=== PATIENT | female | born 1960 | race African-American/Black ===

== ENCOUNTER 2019-03-17 08:49 | Day surgery (SDC) ==
--- NOTE | 2019-03-08 11:49 | EKG Report ---
Test Performed on : 03/08/2019 10:30:36 AM Test Reason : pat Blood Pressure : / mmHG Vent. Rate : 054 BPM Atrial Rate : 054 BPM P-R Int : 192 ms QRS Dur : 114 ms QT Int : 416 ms P-R-T Axes : 039 -04 -11 degrees QTc Int : 394 ms Sinus bradycardia. Nonspecific ST abnormality Abnormal ECG No previous ECGs available Confirmed by Felipe Jordan MD ([id number]) on 03/09/2019 11:06:02 PM
[2019-03-17] MEDS ORDERED: PEPCID ONE (10:27)
[2019-03-17] MEDS ORDERED: LR 1,000 ML ONE (10:27)
[2019-03-17] MEDS ORDERED: KEFZOL 1 GM/D5W 2 GM/100 ML IVPB ONE (10:27)
[2019-03-17] MEDS ORDERED: REGLAN ONE (10:27)
[2019-03-17] MEDS ORDERED: COREG PO ONE (10:29)
--- NOTE | 2019-03-17 10:43 | Diag Imaging Result Doc PS360 ---
LYMPHOSCINTIGRAPHY W/IMG - 03/17/2019 INDICATION: Malignant neoplasm of unspecified site of left female breast COMPARISON: None FINDINGS: 570 uCi of radiotracer was injected into the left breast. After the appropriate delay, there was successful visualization of at least one sentinel lymph node in the axilla. IMPRESSION: Successful lymphoscintigraphy of the breast. Electronically signed by King Wiggins 03/17/2019 10:41 AM
[2019-03-17] MEDS ORDERED: DUONEB (A & A) ONE (11:37)
[2019-03-17] MEDS ORDERED: XYLOCAINE-MPF 2% ONE ×2 (12:43→13:52)
[2019-03-17] MEDS ORDERED: DIPRIVAN 1% ONE (12:43)
[2019-03-17] MEDS ORDERED: ROBINUL ONE (12:43)
[2019-03-17] MEDS ORDERED: METHYLENE BLUE 0.5% ONE (12:47)
[2019-03-17] MEDS ORDERED: SODIUM CHLORIDE 0.9% ONE (12:47)
[2019-03-17] MEDS ORDERED: ZOFRAN ONE (13:37)
[2019-03-17] MEDS ORDERED: FENTANYL ONE (13:40)
[2019-03-17] MEDS ORDERED: APRESOLINE ONE (13:52)
[2019-03-17] MEDS ORDERED: SODIUM CHLORIDE 0.9% 10 ML ONE (13:52)
[2019-03-17] MEDS: DILAUDID ONE ×4 (15:32→15:55)
[2019-03-17] MEDS ORDERED: DILAUDID ONE (16:11)
[2019-03-17] MEDS ORDERED: LR 500 ML ONE (16:12)
[2019-03-17] MEDS ORDERED: NORCO-10 ONE (16:15)
[2019-03-17] MEDS: PHENERGAN ONE ×3 (16:40→16:54)
[2019-03-17] MEDS ORDERED: ZOFRAN IV PRN (17:45)
[2019-03-17] MEDS ORDERED: NORCO-10 PO PRN (17:45)
[2019-03-17] MEDS ORDERED: MEVACOR PO SCH (18:00)
--- NOTE | 2019-03-17 20:00 | OPERATIVE NOTE ---
PROCEDURE DATE: 03/17/2019 PREOPERATIVE DIAGNOSIS: Left breast cancer. POSTOPERATIVE DIAGNOSIS: Left breast cancer. PROCEDURE: 1. Injection of methylene blue into the left breast. 2. Atlantic lymph node mapping. 3. Left mastectomy. 4. Atlantic lymph node biopsy. SURGEON: Lobo Shetty MD CLEAT BLANKER: None. ANESTHESIA: General endotracheal. FINDINGS: One of the lymph nodes was positive. The remaining lymph nodes were negative. COMPLICATIONS: None at time of dictation. ESTIMATED BLOOD LOSS: 100 mL. SPECIMENS: Removed left breast, with single stitch medial, double stitch superior, and sentinel lymph nodes numbered 1 through 3. DRAINS: Size 10 flat drains x2. BRIEF HISTORY: A 59-year-old female with biopsy-proven breast cancer. She wanted to proceed with a mastectomy. The risks, benefits and alternatives were discussed. All questions answered. DESCRIPTION OF PROCEDURE: After informed consent was obtained, the patient was brought to the operative theater, transferred to the operative table and placed in supine position. General endotracheal anesthesia was then performed without complication. A formal time-out was then performed, confirming patient and procedure. All were in agreement. At that time attention was turned to the left breast. It should be noted that she had injection of methylene blue into the left breast prior to the procedure. It showed uptake into the breast. We then prepped and draped the left breast in a sterile fashion, after injecting methylene blue into the breast and massaging for 5 minutes. We then made a standard mastectomy incision, being an elliptical incision over the breast, carried all the way down to remove the breast in its entirety. We went superiorly to the 2nd intercostal space, medially to the sternum, inferiorly to inframammary fold and laterally to the axillary contents. We removed it off the pectoralis muscle, maintaining hemostasis with electrocautery and suture ligation. Once we did this, we used the gamma probe to probe into the axilla. We found one large lymph node which ended up being positive, but there was a smaller lymph node with it and 2 other areas with lymph nodes that were very small and grossly nonpathologic. We sent out for pathology. Again, the first one which was slightly enlarged was positive, but there was no extracapsular invasion and the remaining lymph nodes were negative. I had a discussion with Dr. Brody on the phone. We elected to not proceed with axillary node dissection. She was going to get adjuvant therapy regardless, and likely radiation to her axilla potentially. We elected to place 2 drains. We placed one over the pectoralis muscle and one in the axilla, and secured them in place. We then closed the skin in layers using 3-0 Vicryl and 4-0 Monocryl. The patient tolerated the procedure well. She was transferred to the recovery room. The family was updated. cc: Lobo Shetty MD
[2019-03-17] MEDS: CATAPRES PO SCH (23:14)
[2019-03-17] MEDS: COREG PO SCH (23:14)
[2019-03-17] MEDS: PERIDEX MT SCH (23:14)
--- NOTE | 2019-03-18 06:29 | GENERAL SURGERY PROGRESS NOTE ---
DATE: 03/18/2019 SUBJECTIVE: The patient is doing well. OBJECTIVE: Vital Signs: Patient is currently afebrile. Her vital signs are stable. General: No acute distress. Cardiovascular: Regular rate and rhythm. Lungs: Grossly clear. Chest wall okay. DEMETRI drains with serosanguineous output. ASSESSMENT AND PLAN: A 59-year-old female currently postoperative day #1 from left mastectomy with sentinel lymph node biopsy. Postoperative state at this time. We will plan on discharge home today after breakfast. cc: Lobo Shetty MD
[2019-03-18 08:11] VITALS: BP 155/57
[2019-03-18] MEDS: CATAPRES PO SCH (08:34)
[2019-03-18] MEDS: COREG PO SCH (08:35)
[2019-03-18] MEDS: PERIDEX MT SCH (08:37)
[2019-03-18] MEDS ORDERED: MOBIC PO SCH (09:00)
[2019-03-18] MEDS ORDERED: LOTREL 5/10 MG PO SCH (09:00)
[2019-03-18] MEDS ORDERED: HYDROCHLOROTHIAZIDE PO SCH (09:00)
[2019-03-18] MEDS ORDERED: COZAAR PO SCH (09:00)
[2019-03-21] MEDS ORDERED: VITAMIN D PO SCH (09:00)
== END 2019-03-18 09:17 | disposition home or self-care (01) ==
LOC: 4N 08:49 → OPS 08:49 → PAT 08:49 → OPS 03-18 09:17
PROVIDERS: ATTEND Surgery

== ENCOUNTER 2019-07-28 10:20 | Inpatient (IN) ==
[2019-07-28 12:00] LABS: BASO# 0.02 X1000 (0.0-0.2); BASO% 0.4 % (0.0-0.8); EOS# 0.07 X1000 (0.0-0.7); EOS% 1.6 % (0.0-10.0); HEMATOCRIT 22.4 % (37.0-47.0); HEMOGLOBIN 7.2 g/dL (12.0-16.0); IMM GRAN# 0.15 X1000 (0.0-0.04); IMM GRAN% 3.3 % (0.0-0.5); LYMPH# 1.67 X1000 (1.2-3.4); LYMPH% 37.1 % (20.5-51.1); MCH 28.6 PG (27-31); MCHC 32.1 g/dL (33-37); MCV 88.9 FL (81-99); MONO# 1.07 X1000 (0.11-0.59); MONO% 23.8 % (1.7-9.3); MPV 11.9 FL (7.4-10.4); NEUT# 1.52 X1000 (1.4-6.5); NEUT% 33.8 % (42.2-75.2); PLT 142 X1000 (130-400); RBC 2.52 XMIL (4.2-5.4); RDW 19.7 % (11.5-14.5)
[2019-07-28] MEDS ORDERED: LASIX IV ONE (12:25)
[2019-07-28 12:26] LABS: ANISOCYTOSIS 1+; BANDS 12 % (0-1); LYMPHS 48 % (21-51); MONO 4 % (1-9); NRBC 1 % (0-0); SEGS 28 % (42-75)
[2019-07-28 12:27] LABS: HYPOCHROM 1+; POIKILOCYTOSIS 1+
[2019-07-28 12:45] LABS: AGAP 12; ALB/GLOB RATIO 1.2; ALKALINE PHOSPHATASE 61 U/L (32-104); BUN 10 mg/dL (8-22); CALCIUM 9.2 mg/dL (8.8-10.2); CHLORIDE 101 mmol/L (98-107); COSMO 276; CREATININE 1.1 mg/dL (0.5-0.9); ESTIMATED GFR > 60; GLUCOSE 94 mg/dL (70-104); GOT 18 U/L (10-30); GPT 6 U/L (10-36); POTASSIUM 3.2 mmol/L (3.5-5.1); SODIUM 139 mmol/L (136-145); TCO2 26 mmol/L (25-35); TOTAL BILIRUBIN 0.37 mg/dL (0.20-1.00); TOTAL PROTEIN 5.5 g/dL (6.3-8.3)
--- NOTE | 2019-07-28 12:58 | Diag Imaging Result Doc PS360 ---
EXAM: CHEST-1 VIEW 07/28/2019 HISTORY: SOB TECHNIQUE: AP portable upright chest COMMENT: The study is somewhat underexposed. The heart size is at the upper limits of normal. There is no evidence of acute pulmonary disease. Considering differences in technique, compared to 05/17/2019 there has been no significant change. IMPRESSION: No acute disease. Electronically signed by Piyush Huang 07/28/2019 12:55 PM
[2019-07-28 13:05] LABS: INR 1.19; PROTIME 15.3 Seconds (11.0-16.0)
[2019-07-28 13:06] LABS: PTT 31.5 Seconds (22.3-41.8)
--- NOTE | 2019-07-28 14:17 | PROVIDER DOCUMENTATION ---
This chart was entered by Esther Carrera Scribe, acting as scribe for Terence Sunshine MD. HPI-General Adult - General Chief Complaint: Extremity Pain Stated Complaint: EDEMA/FOOT,FINGER PAIN,CANCER PATIENT Time Seen by Provider: 07/28/19 12:21 Source: patient Allergies/Adverse Reactions: Patient Allergies Allergy/AdvReac Type Severity Reaction Status Date / Time No Known Allergies Allergy Verified 07/28/19 12:12 Home Medications: Home Medication List Medication Instructions Recorded Confirmed Last Taken Type Carvedilol 25 mg PO BID 03/08/19 07/28/19 07/27/19 History Ergocalciferol (Vitamin D2) 50,000 unit PO Q7D 03/08/19 07/28/19 07/26/19 History [Vitamin D2] Hydrochlorothiazide 25 mg PO DAILY 03/08/19 07/28/19 07/27/19 History LOVAstatin [Mevacor] 20 mg PO QHS 03/08/19 07/28/19 07/27/19 History Apixaban [Eliquis] 5 mg PO BID 07/28/19 07/28/19 07/27/19 History Metoclopramide HCl 10 mg PO Q6HR PRN 07/28/19 07/28/19 07/27/19 History Multivitamin with Minerals 1 ea PO DAILY 07/28/19 07/28/19 07/27/19 History [Multiple Vitamin] Potassium Chloride E.r. [Klor-Con] 40 meq PO DAILY 07/28/19 07/28/19 07/27/19 History Vitamin B Complex [B Complex] 1 ea PO DAILY 07/28/19 07/28/19 07/27/19 History Zinc Sulfate 220 mg PO BID 07/28/19 07/28/19 07/27/19 History - History of Present Illness -Gen Adult Nature of Presenting Problems: 59yof presents to ED cc increased swelling to bilateral legs/feet, trouble walking and SOB since Friday. Pt reports she is a Chemo pt of Dr. Brody, he is aware of swelling and just told her to keep him informed. Pt is on no Lasix at present. Pt denies CP. Location of Pain/Injury: reports: chest, lower extremity (bilateral), feet (bilateral) Quality of Pain: reports: tightness Severity: reports: moderate Onset/Duration: reports: 6 days ago Timing: reports: still present Context/Activities at Onset: reports: light activity Modifying Factors: worse with: movement Associated Symptoms: reports: shortness of breath, trouble walking Similar Symptoms Previously?: Yes Recently seen or treated by another doctor?: Yes (Dr. Brody recently) Review of Systems - Adult - REVIEW OF SYSTEMS - ADULT Constitutional: reports: see HPI. denies: chills, fever, fatique Eyes: reports: no symptoms reported Ears, Nose, Mouth & Throat: reports: no symptoms reported Cardiovascular: reports: see HPI. denies: chest pain, palpitations Respiratory: reports: see HPI, shortness of breath. denies: cough, wheezing Gastrointestinal: reports: no symptoms reported Genitourinary: reports: no symptoms reported Musculoskeletal: reports: no symptoms reported Integumentary: reports: see HPI, other (swelling to bilateral legs and feet) Neurological: reports: no symptoms reported Psychiatric: reports: no symptoms reported Endocrine: reports: no symptoms reported Hematologic/Lymphatic: reports: no symptoms reported Allergic/Immunologic: reports: no symptoms reported All Other Systems: Reviewed and Negative Past History - Adult - PAST MEDICAL HISTORY-ADULT Review of Records: reports: Old Records Reviewed, Nursing Assessment Review, Medications Reviewed, Social history reviewed & non-contributory. Major Childhood Illnesses: reports: denies history Cardiovascular: reports: HTN Respiratory: reports: denies history Gastrointestinal: reports: denies history Obstetrical/Gynecological: reports: denies history Genitourinary: reports: denies history Musculoskeletal: reports: denies history Neurological: reports: denies history Endocrine/Immune: reports: denies history Other Conditions: reports: other cancer (left breast) - PRIOR SURGERIES/PROCEDURES Surgical/Procedure History: reports: breast (mastectomy 03/17/19) - IMMUNIZATION STATUS Childhood Immunizations: See Nurse Assessment Flu Vaccine: See Nurse Assessment - FAMILY HISTORY Family History: reviewed, not pertinent Physical Exam-General - PHYSICAL EXAM-ADULT Initial Vital Signs Reviewed: Yes - CONSTITUTIONAL General Appearance: appears well, alert, no apparent distress, obese. negative: anxious, combative - EYES Eyes: PERRL/EOMI, pink conjunctivae. negative: photophobia - HEAD, EARS, NOSE, MOUTH & THROAT HENMT: normocephalic/atraumatic, moist mucous membranes. negative: angioedema - NECK Neck: supple, normal inspection - RESPIRATORY Respiratory: chest non-tender, decreased breath sounds (at bases). negative: normal breath sounds, rhonchi, wheezing - CARDIOVASCULAR Cardiovascular: normal peripheral pulses, regular rate, rhythm, no murmur. negative: bradycardia, tachycardia - GASTROINTESTINAL (ABDOMEN) Abdominal Exam: normal bowel sounds, non tender, soft. negative: guarding, rebound - MUSCULOSKELETAL Extremity: pelvis stable, pedal edema (3+, bilateral), swelling (3+ bilateral legs) - SKIN Integumentary: normal color. negative: diaphoresis, jaundice - NEUROLOGIC Neurologic: care nurse rn II-XII nml as tested, grossly normal, no motor/sensory deficits - PSYCHIATRIC Psych/Mental Status: normal mood/affect, oriented x 3. negative: anxious, disheveled Progress - PLAN OF CARE/RESULTS Progress/Plan/Lab Results: Vital Signs - 8 hr 07/28/19 10:45 Temperature 98.3 F Pulse Rate 102 H Respiratory Rate 18 Blood Pressure 127/92 O2 Sat by Pulse Oximetry 96 Laboratory Results - last 24 hr 07/28/19 11:25 WBC 4.50 L RBC 2.52 L Hgb 7.2 L Hct 22.4 L MCV 88.9 MCH 28.6 MCHC 32.1 L RDW Std Deviation 19.7 H Plt Count 142 MPV 11.9 H Immature Gran % (Auto) 3.3 H Neut % (Auto) 33.8 L Lymph % (Auto) 37.1 [place] % (Auto) 23.8 H Eos % (Auto) 1.6 Baso % (Auto) 0.4 Immature Gran # (Auto) 0.15 H Neut # (Auto) 1.52 Lymph # (Auto) 1.67 [place] # (Auto) 1.07 H Eos # (Auto) 0.07 Baso # (Auto) 0.02 Segmented Neutrophils 28 L Band Neutrophils 12 H Lymphocytes 48 Monocytes 4 Myelocytes 4.0 Nucleated RBCs 1 H Atypical Lymphocytes 4.0 Hypochromia 1+ Poikilocytosis 1+ Anisocytosis 1+ Orders Category Date Time Status Cardiac Monitoring DIRECTED Care 07/28/19 12:25 Active Oxygen Therapy- ED Nursing DIRECTED Care 07/28/19 12:25 Active Saline Loc NOW Care 07/28/19 12:25 Active CHEST-1 VIEW [RAD] Stat Exams 07/28/19 12:25 Ordered CBC WITH DIFF [HEME] Stat Lab 07/28/19 11:25 Completed CK PROFILE [SP CHEM] Stat Lab 07/28/19 12:25 Uncollected CMP [COMPREHENSIVE METABOLIC PANEL] [CHEM] Stat Lab 07/28/19 11:25 Received PRO B-NATRIURETIC PEPTIDE Stat Lab 07/28/19 12:25 Uncollected PROTIME WITH INR [COAG] Stat Lab 07/28/19 12:25 Uncollected PTT [COAG] Stat Lab 07/28/19 12:25 Uncollected TROPONIN T HIGH SENSITIVITY Stat Lab 07/28/19 12:25 Uncollected UA NIMS W/REFLEX CULT [URINALYSIS] Stat Lab 07/28/19 12:26 Uncollected Furosemide [Lasix] Med 07/28/19 12:25 Discontinued 60 mg IV NOW ONE CP/SOB/Palp >45 yrs of Age Stat Oth 07/28/19 12:24 Ordered EKG [EKG] Stat Ther 07/28/19 12:25 Ordered Result Diagrams: 07/28/19 11:25 07/28/19 11:25 - XRAY 1 XRAY: Bilateral XRAY Study: Chest Impression: See EMR Report (IMPRESSION: No acute disease. Electronically signed by Piyush Huang 07/28/2019 12:55 PM) - CONSULTS/PCP/HOSPITALIST Notification #1 *Consult/PCP/Hospitalist*: /HERIBERTO Time Discussed: 14:03 Consult Disposition: Admit Departure - Departure Date of Disposition Decision: 07/28/19 Time of Disposition Decision: 14:03 DIAGNOSIS: CHF (congestive heart failure) Qualifiers: Heart failure type: unspecified Heart failure chronicity: unspecified Qualified Code(s): I50.9 - Heart failure, unspecified Disposition: ADMITTED INPATIENT 09 Certified Medical Emergency: Emergent Condition: Stable Referrals and Follow-Ups: Stephanie Darling CRNP [Primary Care Provider] - - Critical Care Note This patient required my direct & personal management of CC.: No Attestation - Physician/ CASA Attestation Patient care was provided by Advanced Practice Provider:: No The physician spent face to face time with patient:: Yes Advanced Practice Provider documentation review:: Supervising physician onsite and consulted in the evaluation and care of this patient. The physician did have a face to face encounter with the patient. This chart was documented by the indicated scribe, (Esther Carrera, Russ) and accurately reflects the services I performed and decisions made by me, Terence Sunshine MD, as attested by the provider's signature.
[2019-07-28] MEDS ORDERED: ZOFRAN PO PRN (15:27)
[2019-07-28] MEDS ORDERED: TYLENOL PO PRN (15:27)
[2019-07-28] MEDS ORDERED: ZOFRAN IV PRN (15:32)
[2019-07-28] MEDS ORDERED: REGLAN PO PRN (15:34)
--- NOTE | 2019-07-28 17:01 | EKG Report ---
Test Performed on : 07/28/2019 4:50:48 PM Test Reason : elevated HR Blood Pressure : / mmHG Vent. Rate : 115 BPM Atrial Rate : 119 BPM P-R Int : 000 ms QRS Dur : 104 ms QT Int : 344 ms P-R-T Axes : 000 008 254 degrees QTc Int : 475 ms Atrial fibrillation. with rapid ventricular response. Nonspecific ST and T wave abnormality Abnormal ECG When compared with ECG of 17-MAY-2019 17:57, (Unconfirmed) Criteria for Septal infarct are no longer present Confirmed by Prieto Hernandes MD ([id number]) on 07/28/2019 7:52:56 PM
[2019-07-28] MEDS ORDERED: KLOR-CON PO ONE (17:05)
[2019-07-28] MEDS ORDERED: POTASSIUM CHLORIDE 20 MEQ/SWI 20 MEQ/100 ML IVPB IV ONE (17:05)
[2019-07-28] MEDS: CARDIZEM 100 MG/NS 100 MG/100 ML IVPB IV SCH (17:36)
[2019-07-28] MEDS ORDERED: MAGNESIUM SULFATE 2 GM/S.W.I. 2 GM/50 ML IVPB IV ONE (18:55)
--- NOTE | 2019-07-28 18:56 | HISTORY AND PHYSICAL ---
PRIMARY CARE PROVIDER: TOOTIE Antonio. ONCOLOGIST: Dr. Brody. CHIEF COMPLAINT: Bilateral lower extremity edema. HISTORY OF PRESENT ILLNESS: Ms. Hook is a 59-year-old female who carries a past medical history of left-sided breast cancer. She is currently undergoing chemotherapy with Dr. Brody. She reports over the last few months she has had a waxing and waning in her bilateral lower extremity edema associated with some shortness of breath. No chest pain. No heart palpitations. No fever. No chills. Decrease in appetite. She does report nausea, vomiting, and diarrhea associated with her chemotherapy. She reports she has had many medication adjustments since starting her chemo. Could not really tell me what exactly she was on. She is on medications for her hypertension, as well as some type of fluid pill that she reports is "not very strong." Workup in the ED showed an elevated proBNP. She does have some bilateral lower extremity pitting edema as well as some anemia. Blood pressures are stable. Upon physical exam, heart tones were irregular. We did a stat EKG. She is currently in atrial fibrillation with RVR. She was given a dose of IV Lasix in the ED. Her potassium was 3.1. So we will go ahead and replenish her potassium, check a stat magnesium, and initiate her on a Cardizem drip, and continue her on PCV with a Cardiology consult and an echocardiogram in the a.m. PAST MEDICAL HISTORY: 1. Left-sided breast cancer, currently undergoing chemotherapy with Dr. Brody. 2. Hypertension. 3. Bilateral lower extremity edema. Reports no official diagnosis of congestive heart failure. However, she has been on medications in the past that lead me to think maybe she did have some congestive heart failure. PAST SURGICAL HISTORY: Left breast biopsy, port placement, x2. SOCIAL HISTORY: She continues to smoke about 4 cigarettes per day. No alcohol or illicit drug use. REVIEW OF SYSTEMS: Twelve-point review of systems completely negative except for those mentioned in HPI. PHYSICAL EXAMINATION: VITAL SIGNS: Temperature is 98 degrees, heart rate 106, respirations 16, blood pressure 120/83, O2 is 100% on room air. GENERAL: Ms. Hook is a pleasant, morbidly obese, 59-year-old female who is sitting up in the bed, somewhat short of breath, in no acute distress. HEENT: Atraumatic, normocephalic. PERRL. NECK: Supple. Trachea midline. CARDIOVASCULAR: Irregularly irregular. Did not appreciate any murmurs, gallops, or rubs. RESPIRATORY: Lung sounds clear bilaterally. Decreased in the bases. GI: Obese, soft, nontender, nondistended. Positive bowel sounds 4 quadrants. EXTREMITIES: Lower extremities with 2 to 3+ pitting edema. Could not assess pedal pulses secondary to the swelling. NEUROLOGIC: No focal deficits noted. DIAGNOSTIC DATA: Chest x-ray showed no acute disease, underexposed. EKG atrial fibrillation with RVR to 115 beats per minute. LABORATORY DATA: White count 4, hemoglobin and hematocrit 7.2 and 22, platelet count is 142,000. Sodium 139, potassium 3.2, BUN 10, creatinine 1.1, blood glucose is 94. CK 75. Troponin of 20. ProBNP of 2,792. ASSESSMENT AND PLAN: 1. Probable congestive heart failure exacerbation, possibly diastolic. She had a normal EF earlier in June of 60%. We will continue with IV diuresis. 2. Atrial fibrillation with rapid ventricular response, new onset. We will consult Cardiology. We will get a limited echo in the a.m. Place her on a Cardizem drip. Continue on PCV. 3. Left-sided breast cancer. On chemotherapy with Dr. Brody. We will consult Dr. Brody as well. 4. Anemia. Hemodynamically stable. We will type and screen her, transfuse as needed. 5. Hypokalemia. We will replenish and check a potassium. 6. Further recommendation to follow physician evaluation, laboratory and diagnostic data. Dictated by TOOTIE Osman for Suzanne Sawant MD cc: MD Armando Rizo MD Stephanie Weems, CRNP
[2019-07-28] MEDS ORDERED: COREG PO SCH (21:00)
[2019-07-28] MEDS: ELIQUIS PO SCH (21:17)
[2019-07-28] MEDS: MEVACOR PO SCH (21:17)
[2019-07-28] MEDS: LASIX IV SCH (21:17)
[2019-07-28 22:41] LABS: URINE SOURCE CLEAN CATCH
[2019-07-28 22:48] LABS: BILIRUBIN URINE NEGATIVE (NEGATIVE); BLOOD URINE NEGATIVE (NEGATIVE); COLOR YELLOW; GLUCOSE URINE NEGATIVE (NEGATIVE); KETONE URINE NEGATIVE (NEGATIVE); LEUKOCYTES URINE NEGATIVE (NEGATIVE); NITRITE URINE NEGATIVE (NEGATIVE); PH URINE 6.5; PROTEIN URINE TRACE mg/dL (NEGATIVE); SP GRAVITY URINE 1.009; TURBIDITY URINE CLEAR (CLEAR); UROBILINOGEN URINE NORMAL (NORMAL)
[2019-07-28 22:50] LABS: UR EPITHELIAL CELLS <10 /HPF (<10); URINE BACTERIA NEGATIVE /HPF; URINE RBC <10 /HPF (<10)
[2019-07-29] MEDS: CARDIZEM 100 MG/NS 100 MG/100 ML IVPB IV SCH (03:25)
[2019-07-29 06:49] LABS: BASO# 0.04 X1000 (0.0-0.2); BASO% 0.6 % (0.0-0.8); EOS# 0.07 X1000 (0.0-0.7); HEMOGLOBIN 6.8 g/dL (12.0-16.0); IMM GRAN# 0.35 X1000 (0.0-0.04); IMM GRAN% 4.8 % (0.0-0.5); LYMPH# 2.15 X1000 (1.2-3.4); LYMPH% 29.7 % (20.5-51.1); MCH 28.9 PG (27-31); MCHC 32.4 g/dL (33-37); MCV 89.4 FL (81-99); MONO# 1.22 X1000 (0.11-0.59); MONO% 16.9 % (1.7-9.3); MPV 12.9 FL (7.4-10.4); NEUT# 3.41 X1000 (1.4-6.5); PLT 148 X1000 (130-400); RBC 2.35 XMIL (4.2-5.4); RDW 20.3 % (11.5-14.5); WBC 7.24 X1000 (4.8-10.8)
[2019-07-29 07:04] LABS: AGAP 12; BUN 9 mg/dL (8-22); CALCIUM 8.8 mg/dL (8.8-10.2); CHLORIDE 100 mmol/L (98-107); COSMO 275; CREATININE 1.1 mg/dL (0.5-0.9); ESTIMATED GFR > 60; GLUCOSE 105 mg/dL (70-104); POTASSIUM 3.1 mmol/L (3.5-5.1); SODIUM 138 mmol/L (136-145); TCO2 26 mmol/L (25-35)
[2019-07-29] MEDS ORDERED: MAGNESIUM SULFATE 2 GM/S.W.I. 2 GM/50 ML IVPB IV ONE (07:20)
[2019-07-29] MEDS ORDERED: KLOR-CON PO ONE (07:21)
--- NOTE | 2019-07-29 08:22 | EKG Report ---
Test Performed on : 07/29/2019 07:11:20 AM Test Reason : afib Blood Pressure : / mmHG Vent. Rate : 091 BPM Atrial Rate : 065 BPM P-R Int : 000 ms QRS Dur : 102 ms QT Int : 348 ms P-R-T Axes : 000 040 -85 degrees QTc Int : [address] & T wave abnormality, consider inferior ischemia Abnormal ECG When compared with ECG of 28-JUL-2019 16:50, No significant change was found Confirmed by Prieto Hernandes MD ([id number]) on 07/29/2019 8:18:10 PM
[2019-07-29] MEDS ORDERED: NS 500 ML IV ONE (09:22)
[2019-07-29] MEDS: LASIX IV SCH ×2 (09:38→22:07)
[2019-07-29] MEDS: THERA M PLUS PO SCH (09:38)
[2019-07-29] MEDS: ELIQUIS PO SCH ×2 (09:38→22:07)
[2019-07-29] MEDS: ASPIRIN PO SCH (09:38)
[2019-07-29] MEDS: COZAAR PO SCH (09:38)
--- NOTE | 2019-07-29 12:50 | HEMO/ONC CONSULTATION ---
DATE: 07/29/2019 REASON FOR CONSULTATION: She is a known patient of ours for the treatment of left breast cancer. HISTORY OF PRESENT ILLNESS: Ms. Hook is an , 59-year-old female, who comes to the ER today with a complaint of increasing bilateral lower extremity edema with associated shortness of breath that has been increasing over the past several days. She denies any chest pain, heart palpitations, fever, chills, or new pain. The patient's workup in the ER revealed elevated proBNP. She had significant bilateral lower extremity pitting edema. She was found to be anemic with a hemoglobin of 7.2, hematocrit 22.4. She was in atrial fibrillation with RVR. Her potassium was 3.1. The patient was placed on a Cardizem drip and admitted to [facility] for further evaluation. The patient is a known patient of ours in the clinic for the treatment of T2 N1, ER/RI positive, HER-2/juliette positive left breast cancer. The patient underwent left mastectomy with sentinel node dissection on 03/17/2019. The patient began treatment on 04/26/2019 with Herceptin, Perjeta, Taxotere, and carboplatin. Her infusions are every 3 weeks. Her last dose was 07/20/2019. Due to neutropenia, the patient was placed on Udenyca, a white cell booster. Her last dose was on 07/21/2019. PAST MEDICAL HISTORY: 1. Hypertension. 2. Left-sided breast cancer, currently undergoing chemotherapy. PAST SURGICAL HISTORY: Left breast mastectomy, port placement. SOCIAL HISTORY: The patient states she smokes about 4 cigarettes a day. She denies alcohol or illicit drug use. ALLERGIES: No known drug allergies. HOME MEDICATIONS: 1. Eliquis. 2. Carvedilol. 3. Vitamin D2. 4. Hydrochlorothiazide. 5. Lovastatin. 6. Metoclopramide. 7. Multivitamin. 8. Potassium chloride. 9. Vitamin B complex. 10. Zinc sulfate. REVIEW OF SYSTEMS: The patient states she is breathing much better this morning. She denies any flank pain. She continues to have lower extremity edema. All other review of systems are negative. PHYSICAL EXAMINATION: Vital Signs: Temperature 98.1 degrees, pulse rate 86, respiratory rate 16, blood pressure 125/85, O2 saturation 100% on room air. She is in 0/10 pain. General: This is a morbidly obese female with a BMI of 59.5, who appears in no acute distress. HEENT: Sclera anicteric. PERRLA. Oral mucosa is normal. Cardiovascular: Irregularly irregular rhythm. Respiratory: Lung sounds are clear to auscultation. Normal respiratory effort. Dyspnea with exertion. Gastrointestinal: Abdomen is significantly protuberant, soft, nontender. No masses noted. Positive bowel sounds. Skin: No petechiae, ecchymosis, or rashes noted on exposed skin. Extremities: Lower extremities have +2 pitting edema bilaterally. Neurologic: No focal motor deficits noted. She is alert and oriented x3. LABORATORY DATA: WBC 7.24, hemoglobin 6.8, hematocrit 21.0, platelet count 148,000. Sedimentation rate 78. Potassium 3.1, creatinine 1.1. Magnesium 1.4. CRP 20.07. ProBNP 2792. RADIOLOGY: Chest x-ray: No acute pathology noted. EKG confirms atrial fibrillation. ASSESSMENT AND PLAN: 1. Probable congestive heart failure exacerbation. The patient's last MUGA scan revealed a 60% ejection fraction. Continue management per Cardiology and medical management. 2. Atrial fibrillation with rapid ventricular response. The patient has been following regularly with Dr. Guerra. She has been placed on Eliquis. She states she has been compliant. Her rate has been in the 60s to 80s in the clinic. 3. Left-sided breast cancer. The patient is currently receiving therapy with Herceptin, Perjeta, Taxotere, and carboplatin. Her last dose was 07/20/2019. She also received Udenyca 6 mg on 07/21/2019. Her treatments are every 3 weeks. 4. Anemia. The patient's hemoglobin has dropped to 6.8 today. The patient will require a blood transfusion. Due to her atrial fibrillation, Dr. Brody requests that her volume be infused slowly, 1 blood transfusion today and 1 blood transfusion tomorrow. 5. Hypokalemia, replenish per medical management per protocol. 6. Hypomagnesemia, replenish per protocol. 7. Deep venous thrombosis prophylaxis. The patient should remain on her Eliquis. She should also be helped to get out of the bed 3 times a day. 8. Nutrition. The patient does not have much of an appetite due to chemotherapy. She will require protein shakes to help keep her protein levels up, and calories. Dictated by TOOTIE Hurtado for Armando Brody MD cc: Armando Brody MD [facility]
[2019-07-29] MEDS ORDERED: COREG PO ONE (12:55)
--- NOTE | 2019-07-29 13:00 | CARDIOLOGY CONSULTATION ---
DATE: 07/29/2019 CHIEF COMPLAINT ON PRESENTATION: Lower extremity edema. HISTORY OF PRESENT ILLNESS: Ms. Hook is a 59-year-old black female with a history of atrial fibrillation, as well as hypertension, hyperlipidemia, normally sees Dr. Guerra as an outpatient. Last visit June 14. Over the last week or two, she has reported waxing and waning of lower extremity edema that worsened significantly yesterday resulting in significant bilateral lower extremity edema resulting in her being unable to walk very well. She subsequently presented and was found to be in atrial fibrillation. She was started on diuretics. She reports essentially stable lower extremity edema. She denies any overt orthopnea. She does currently receive chemotherapy via Dr. Brody for a left-sided breast cancer. PAST MEDICAL HISTORY: 1. Significant for atrial fib, apparent recent diagnosis in late 2018. She has been on Eliquis at home which she reports compliance with. 2. Hypertension. 3. Hyperlipidemia. 4. Breast cancer with left-sided mastectomy and lymph node dissection in February 2019, currently receiving chemo. SOCIAL HISTORY: She is single. No tobacco, no alcohol or illicit drugs. FAMILY HISTORY: Significant for hypertension. REVIEW OF SYSTEMS: A 10 system review of systems is negative, except for those things mentioned in the HPI. PHYSICAL EXAMINATION: Vital Signs: She is afebrile, heart rate 86, her blood pressure is 125/85. Intake/output: Thus far, we have limited data, 750 mL out in urine output. Essentially matched intake/output. General: No acute distress. Obese. HEENT: Oropharynx is moist. Poor dentition. Eye examination shows pink conjunctivae, white sclerae. Neck: Examination shows no obvious thyromegaly or thyroid tenderness. Cardiovascular: Distant. She has irregularly irregular heart sounds. She has no murmurs. She has 1+ bilateral lower extremity edema with some evidence of lymphedema noted in both lower extremities, warm and well perfused. Chest: Has distant breath sounds. No increased work of breathing. Abdomen: Soft, nontender, nondistended. She has no obvious organomegaly. Skin exam: Warm and dry throughout without any rashes. Neurological: She is moving all extremities well. She has no lateralizing deficits. PERTINENT DATA: Notably she had a nuclear scan showing a moderate-size fixed defect in the inferior and inferolateral wall suggestive of possibly infarct or scar. Cannot rule out significant soft tissue attenuation. The EF on that study was 57%. She had an echocardiogram on June 30 showing a normal ejection fraction of 60%. Mild LVH. No wall motion abnormalities. Her EKG on the at 1650 hours shows rapid atrial fibrillation, rate of 115 beats per minute. Nonspecific ST-T changes. Subsequent EKG on the at 0711 hours shows atrial fibrillation rate of 91 beats per minute. Her lab data shows a white count is 7.2, hematocrit 21, platelet count of 148. She is currently receiving blood. Her sodium is 138, potassium 3.1. BUN 9, creatinine is 1.1. Her magnesium level is 1.4. ProBNP was 2792 with a high sensitivity troponin of 20. ASSESSMENT: Ms. Hook is a 59-year-old female, who presented with edema. PLAN: She appears to be in diastolic heart failure. We will increase her diuretics to Lasix 60 mg IV b.i.d. We will reinstitute some of her beta blockade and try to get her off the diltiazem infusion. She is getting a limited echo. cc: Saran Vázquez MD
--- NOTE | 2019-07-29 17:34 | ECHO REPORT ---
ORDER DATE: 07/29/2019 INDICATION: Atrial fibrillation, history of breast cancer. M-MODE MEASUREMENTS: Left ventricle end diastole: 5.6. Left ventricle end systole: 3.8. Posterior wall: 1.0. Interventricular septum: 1.1. Left atrium: 6.3. Aortic diameter: 3.4. SUMMARY OF 2-DIMENSIONAL IMAGIN. The study is difficult. Left ventricular function appears to be mildly decreased in the range of 50% to 55%. The ejection fraction may be well within normal range; however, due to the irregular cycles and the limited apical views, it is difficult to calculate an accurate ejection fraction. 2. The left atrium is markedly dilated, consistent with persistent atrial fibrillation. 3. The mitral valve shows a mild degree of regurgitation. 4. The aortic valve opens normally 5. The tricuspid valve shows a mild to moderate degree of regurgitation. Pulmonary pressure estimated at 39 mmHg. There is no pericardial effusion, no mass, and no thrombus. 6. The right-sided chambers are mildly to moderately enlarged. Clinical correlation recommended. cc: MD Suzanne Rudolph MD
--- NOTE | 2019-07-29 19:45 | PROGRESS NOTE ---
DATE: 07/29/2019 SUBJECTIVE: The patient is resting comfortably in bed. No acute events noted overnight. She states that she feels a little bit better today. OBJECTIVE: Vital Signs: Temperature 98.7 degrees, blood pressure 113/57, heart rate 85, respirations 16, O2 saturations 100% on room air. General: This is a morbidly obese female sitting in bed in no acute distress. Heart: S1, S2 normal. Regular rate and rhythm. Lungs: Equal air entry bilaterally. No wheezing. No rales. No rhonchi. Abdomen: Positive bowel sounds. Soft, nontender, nondistended. Extremities: 3+ edema bilaterally. Neurologic: The patient is alert and oriented x3. LABS: White blood cell count 7.2, hemoglobin 6.8, hematocrit 21, platelets 148,000. Sodium 138, potassium 3.1, chloride 100, CO2 26, BUN 9, creatinine 1.1 glucose 105, magnesium 1.4. ASSESSMENT AND PLAN: 1. Acute diastolic congestive heart failure exacerbation. The patient's cardiac medications have been adjusted by the ocean lifeguard. We will continue to follow closely. 2. Anemia. The patient will receive a blood transfusion today. We will monitor the hemoglobin and hematocrit closely. 3. Breast cancer, status post chemotherapy. The patient is being followed by Dr. Brody. 4. Atrial fibrillation. The patient's rate control medications have been adjusted. Continue on Eliquis. 5. Morbid obesity. Aware. 6. Deep vein thrombosis prophylaxis. The patient is currently on Eliquis. cc: Suzanne Sawant MD MTD[facility]umber[facility]
[2019-07-29] MEDS: COREG PO SCH (22:07)
[2019-07-29] MEDS: MEVACOR PO SCH (22:08)
[2019-07-30 06:26] LABS: BASO# 0.02 X1000 (0.0-0.2); BASO% 0.2 % (0.0-0.8); EOS# 0.04 X1000 (0.0-0.7); EOS% 0.5 % (0.0-10.0); HEMATOCRIT 24.5 % (37.0-47.0); HEMOGLOBIN 7.9 g/dL (12.0-16.0); IMM GRAN# 0.38 X1000 (0.0-0.04); IMM GRAN% 4.3 % (0.0-0.5); LYMPH# 1.74 X1000 (1.2-3.4); LYMPH% 19.7 % (20.5-51.1); MCH 28.6 PG (27-31); MCHC 32.2 g/dL (33-37); MCV 88.8 FL (81-99); MONO# 1.26 X1000 (0.11-0.59); MONO% 14.3 % (1.7-9.3); MPV 12.5 FL (7.4-10.4); NEUT# 5.38 X1000 (1.4-6.5); PLT 148 X1000 (130-400); RBC 2.76 XMIL (4.2-5.4); RDW 19.2 % (11.5-14.5); WBC 8.82 X1000 (4.8-10.8)
[2019-07-30 06:36] LABS: AGAP 11; BUN 9 mg/dL (8-22); CALCIUM 8.8 mg/dL (8.8-10.2); CHLORIDE 101 mmol/L (98-107); COSMO 276; CREATININE 1.1 mg/dL (0.5-0.9); ESTIMATED GFR > 60; GLUCOSE 97 mg/dL (70-104); MAGNESIUM 1.5 mg/dL (1.5-2.7); POTASSIUM 3.1 mmol/L (3.5-5.1); SODIUM 139 mmol/L (136-145); TCO2 27 mmol/L (25-35)
[2019-07-30] MEDS ORDERED: MAGNESIUM SULFATE 2 GM/S.W.I. 2 GM/50 ML IVPB IV ONE ×2 (08:18→17:24)
[2019-07-30] MEDS: ELIQUIS PO SCH ×2 (08:19→21:16)
[2019-07-30] MEDS: THERA M PLUS PO SCH (08:19)
[2019-07-30] MEDS: COZAAR PO SCH (08:19)
[2019-07-30] MEDS: ASPIRIN PO SCH (08:19)
[2019-07-30] MEDS: COREG PO SCH ×2 (08:19→21:16)
[2019-07-30] MEDS: LASIX IV SCH ×2 (08:19→21:16)
[2019-07-30] MEDS: POTASSIUM CHLORIDE 20% LIQUID PO SCH ×2 (09:23→18:30)
[2019-07-30] MEDS ORDERED: SYSTANE EYE DROPS BOTH EYES PRN (10:02)
--- NOTE | 2019-07-30 11:00 | Extremity Venous Study ---
PROCEDURE NAME: Venous U/S Bilateral Legs - 07/29/2019 BILATERAL LOWER EXTREMITY VENOUS STUDY: REQUESTING PHYSICIAN: Dr. Sawant. SEAM CLOSER: Scott. INDICATION: Swelling. EQUIPMENT: [employer] Vivid E9 ultrasound system with a 9 L-D transducer. FINDINGS: Images of the bilateral lower extremity venous systems were obtained in both sagittal and transverse planes. Doppler was used to evaluate veins for spontaneity, phasicity, respiratory excursion, and digital augmentation. RESULTS: Normal venous compression, normal venous flow. No obvious superficial or deep venous thrombosis noted. INTERPRETATION: Essentially normal bilateral lower extremity venous study. cc: MD Suzanne Box MD
--- NOTE | 2019-07-30 12:45 | HEMO/ONC PROGRESS NOTE ---
DATE: 07/30/2019 SUBJECTIVE: Ms. Hook is sitting up in bed after eating her breakfast and feeling very well. She states that she does feel better than she did yesterday. She is breathing better. She denies any pain. She states her edema in her lower extremities has not decreased. She has no significant complaint. No significant events occurred overnight. OBJECTIVE: Vital Signs: Temperature 97.6 degrees, pulse rate 95, respiratory rate 14, blood pressure 89/55, and O2 saturation 93% on room air. She is in 0/10 pain. PHYSICAL EXAMINATION: General: The patient is in no acute distress. Cardiovascular: Normal S1, S2. Heart rate and rhythm regular. The patient is hypotensive. Respiratory: Lung sounds are clear to auscultation. Normal respiratory effort. Extremities: Lower extremities continue to show +2 to 3 pitting edema. Neurological: Alert and oriented x3. No focal motor deficits. LABORATORY: WBCs 8.82, hemoglobin 7.9, hematocrit 24.5, platelet count 148,000, potassium 3.1, and creatinine 1.1. ProBNP 1697. ASSESSMENT AND PLAN: 1. Diastolic heart failure. Per Cardiology. 2. Atrial fibrillation with RVR. Continue management per Cardiology. 3. Anemia. The patient had 1 blood transfusion yesterday. She should be having her second blood transfusion today. Her hemoglobin is improving. 4. Left-sided breast cancer. The patient is currently receiving treatment for cancer. Her treatment is on hold while she is in the hospital. We will follow up with her in clinic.. 5. Hypokalemia. Replenish per medical management per protocol. 6. Deep venous thrombosis prophylaxis. The patient should remain on Eliquis. She should also be getting out of the bed up to 3 times a day. 7. Nutrition. Continue the patient on protein shakes. Continue to encourage her to eat. 8. Hypomagnesemia. This is resolved for today. Dictated by TOOTIE Hurtado for Armando Brody MD cc: Armando Brody MD [facility]
[2019-07-30 15:48] LABS: MAGNESIUM 1.6 mg/dL (1.5-2.7)
[2019-07-30] MEDS ORDERED: KLOR-CON PO ONE (17:24)
--- NOTE | 2019-07-30 18:25 | CARDIOLOGY PROGRESS NOTE ---
DATE: 07/30/2019 SUBJECTIVE: Ms. Hook has no complaints today. She reports her swelling has improved significantly. She still has some swelling and some lower extremity discomfort but overall it has improved. PHYSICAL: She is afebrile, heart rate is 95, blood pressure is 89/55. I's and O's are poorly recorded. General: No acute distress. Cardiovascular: She sounds to be in an irregularly irregular rhythm. She has no murmurs, she has no S3. She has mild bilateral lower extremity edema and warm well-perfused extremities. Her chest exam is distant clear. No increased work of breathing. Abdomen soft, nontender. PERTINENT DATA: White count 8.8, hematocrit 24.5, platelet count is 148,000. Sodium 139, potassium 3.1, her BUN is 9, creatinine is 1.1, mag level is 1.5. ProBNP is 1697. ASSESSMENT: Ms. Hook is a 59-year-old female with diastolic failure, chronic atrial fibrillation who presented anemic as well. PLAN: She has received repletion of her potassium and magnesium. She continues on anticoagulants for the time being. I have discontinued her losartan. For the time being we will continue her on the carvedilol for rate control. She is on diuretics. Labs have been ordered for the morning. Hematology is following the patient for evaluation of her anemia. cc: Saran Vázquez MD
[2019-07-30] MEDS: MEVACOR PO SCH (21:16)
[2019-07-31 07:20] LABS: AGAP 12; BUN 9 mg/dL (8-22); CALCIUM 8.3 mg/dL (8.8-10.2); CHLORIDE 99 mmol/L (98-107); COSMO 276; CREATININE 1.1 mg/dL (0.5-0.9); ESTIMATED GFR > 60; GLUCOSE 90 mg/dL (70-104); MAGNESIUM 1.6 mg/dL (1.5-2.7); PHOSPHORUS 3.4 mg/dL (2.7-4.5); POTASSIUM 2.9 mmol/L (3.5-5.1); SODIUM 139 mmol/L (136-145); TCO2 28 mmol/L (25-35)
[2019-07-31 07:31] LABS: HEMATOCRIT 23.8 % (37.0-47.0); HEMOGLOBIN 7.7 g/dL (12.0-16.0); MCH 28.6 PG (27-31); MCHC 32.4 g/dL (33-37); MCV 88.5 FL (81-99); MPV 12.9 FL (7.4-10.4); RBC 2.69 XMIL (4.2-5.4); RDW 19.5 % (11.5-14.5); WBC 9.56 X1000 (4.8-10.8)
[2019-07-31] MEDS ORDERED: KLOR-CON PO ONE ×2 (08:39→19:27)
[2019-07-31] MEDS ORDERED: MAGNESIUM SULFATE 2 GM/S.W.I. 2 GM/50 ML IVPB IV ONE (08:39)
[2019-07-31] MEDS ORDERED: POTASSIUM CHLORIDE 20% LIQUID PO ONE ×2 (09:15→22:30)
[2019-07-31] MEDS: COREG PO SCH ×2 (09:21→21:28)
[2019-07-31] MEDS: ELIQUIS PO SCH ×2 (09:21→21:28)
[2019-07-31] MEDS: THERA M PLUS PO SCH (09:22)
[2019-07-31] MEDS: LASIX IV SCH (09:22)
[2019-07-31] MEDS: ASPIRIN PO SCH (09:22)
[2019-07-31] MEDS ORDERED: ALBUMIN 25% IV ONE (09:30)
[2019-07-31] MEDS: FLONASE NAS SCH (10:39)
[2019-07-31] MEDS: MUCINEX PO SCH ×2 (10:40→21:28)
[2019-07-31] MEDS ORDERED: BLISTEX MEDICATED BERRY LIP BALM TOP PRN (10:53)
--- NOTE | 2019-07-31 11:10 | Diag Imaging Result Doc PS360 ---
EXAM: CT MAXILLOFACIAL(SINUS) W/O CO 07/31/2019 HISTORY: sinusitis TECHNIQUE: CT of the paranasal sinuses COMMENT: There are no previous studies. There is some mucosal thickening in both maxillary sinuses, particularly on the right side. There are no air-fluid levels. There is minimal mucosal thickening in the sphenoid sinuses and to a greater extent in multiple ethmoid air cells bilaterally. There is mucosal thickening in the left frontal sinus. There is some fluid in some of the mastoid air cells on the left. The middle ear cavities are pneumatized. Both infundibula appear to be widely patent. There is no evidence of acute bony abnormality. IMPRESSION: Chronic bilateral maxillary, ethmoid, and left frontal sinusitis. Left mastoid effusion. Electronically signed by Piyush Huang 07/31/2019 11:08 AM
--- NOTE | 2019-07-31 11:13 | Diag Imaging Result Doc PS360 ---
EXAM: CT THORAX W/O CONTRAST 07/31/2019 HISTORY: dyspnea TECHNIQUE: This exam was performed using automated exposure control, adjustment of mA or kV according to patient size, and/or use of iterative reconstruction technique. COMMENT: The current study is compared with 04/02/2019. There are calcified nodes in the left hilum. There is opacification of the medial portion of the left lower lobe which was not present at the time the previous study. There is platelike opacity in the superior segment of the left lower lobe. There are atherosclerotic calcifications in the aorta and coronary arteries. There is no evidence of acute bony abnormality. The visualized portion of the abdomen is grossly normal in appearance. IMPRESSION: Atelectasis and/or pneumonia left lower lobe. Electronically signed by Piyush Huang 07/31/2019 11:11 AM
--- NOTE | 2019-07-31 14:04 | PROGRESS NOTE ---
DATE: 07/31/2019 SUBJECTIVE: The patient complains of persistent coughing and postnasal drip. OBJECTIVE: Vital Signs: Temperature 98.1 degrees, blood pressure 96/46, heart rate 96, respirations 20, O2 saturations 100% on room air. Intake 1 L. General: This is a morbidly obese female sitting up in bed in no acute distress. Heart: S1, S2 normal. Lungs: Coarse breath sounds bilaterally. Abdomen: Positive bowel sounds. Soft, obese, nontender, nondistended. Extremities: 2+ edema bilaterally. Neuro: The patient is alert and oriented x3. LABS: White blood cell count 9.5, hemoglobin 7.7, hematocrit 23, platelets 164,000. Sodium 139, potassium 2.9, chloride 99, CO2 28, BUN 9, creatinine 1.1, glucose 90, magnesium 1.6, phosphorus 3.4, calcium 8.3, albumin 2.8. CT of the chest reveals atelectasis and/or left lower lobe pneumonia. CT of the sinuses reveals chronic bilateral maxillary ethmoid and left frontal sinusitis. Left mastoid effusion. ASSESSMENT AND PLAN: 1. Possible left lower lobe pneumonia. Will start the patient on antibiotics, bronchodilator therapy. Will check blood and sputum cultures. Will also add bronchodilator therapy. Will add incentive spirometry. 2. Acute diastolic congestive heart failure exacerbation. Slowly improving. Continue on the current regimen as directed by the industrial spraypainter. 3. Anemia. Stable. 4. Chronic sinusitis. Antibiotics have been started. We will also start the patient on Nasonex. 5. Breast cancer status post chemotherapy. Aware. The patient is being followed by Dr. Brody. 6. Hypokalemia. Will replace the patient's potassium. 7. Hypomagnesemia. Will replace the patient's magnesium. 8. Atrial fibrillation. The patient is rate controlled. Continue on the current regimen. 9. Morbid obesity. Aware. 10. Deep vein thrombosis prophylaxis. Continue on Eliquis. cc: Suzanne Sawant MD MTDD
[2019-07-31] MEDS ORDERED: NS NEB INH SCH (14:15)
--- NOTE | 2019-07-31 15:22 | HEMO/ONC PROGRESS NOTE ---
DATE: 07/31/2019 SUBJECTIVE: Ms Hook is sitting up visiting with family. She feels very good today. She states she has had improvement. She continues to have cough and upper respiratory like symptoms. She has no pain. She had a good night's sleep. OBJECTIVE: Vital Signs: Temperature 98.1 degrees, pulse rate 96, respiratory rate 20, blood pressure 96/46, O2 saturation 100% on room air. She is in 0/10 pain. PHYSICAL EXAMINATION: General: Pleasant female in no acute distress. Cardiovascular: Normal S1, S2. Heart rate and rhythm regular. Patient remains hypotensive. Respiratory: Coarse lung sounds noted bilaterally. Normal respiratory effort. Abdomen: Protuberant, soft, nontender, nondistended. Extremities: There is +2 pitting edema to bilateral lower extremities. Neurological: Patient is alert and oriented x3. No focal motor deficits noted. LABORATORY: WBCs 9.56, hemoglobin 7.7, hematocrit 23.8, platelet count 164,000. Potassium 2.9, creatinine 1.1, calcium 8.3, magnesium 1.6, albumin 2.8. ASSESSMENT AND PLAN: 1. Diastolic heart failure is per Cardiology. 2. Atrial fibrillation with rapid ventricular response. Continue management per Cardiology. 3. Anemia. The patient had one blood transfusion on 07/29/2019. We had ordered a 2nd blood transfusion to be given yesterday. It does not appear that occurred. I placed a transfusion order today for the 2nd transfusion to occur. The patient will need blood transfusions for hemoglobin of less than 8. 4. Left-sided breast cancer. The patient is currently receiving treatment for cancer. It is on hold while she is in the hospital. We will follow up with her in the clinic when she recovers from this acute illness. 5. Hypokalemia continue to replenish per medical management protocol. 6. Deep venous thrombosis prophylaxis. The patient is on Eliquis. She should also be getting up out of the bed at least 3 times a day. 7. Nutrition. Continue the patient on protein shakes daily. Encouraged her to eat. Dictated by TOOTIE Hurtado for Armando Brody MD cc: Armando Brody MD [facility]
[2019-07-31] MEDS: ZYVOX 600 MG/D5W 600 MG/300 ML IVPB IV SCH (15:30)
[2019-07-31] MEDS: MAXIPIME 1 GM in NS 50 ML IV SCH (15:30)
[2019-07-31] MEDS: XOPENEX NEB INH SCH ×2 (16:57→22:25)
[2019-07-31 17:15] LABS: MAGNESIUM 2.1 mg/dL (1.5-2.7); POTASSIUM 3.2 mmol/L (3.5-5.1)
[2019-07-31] MEDS ORDERED: NS 500 ML ONE (18:41)
[2019-07-31] MEDS: MEVACOR PO SCH (21:28)
[2019-08-01] MEDS: LASIX IV SCH ×3 (00:01→20:52)
[2019-08-01] MEDS: ZYVOX 600 MG/D5W 600 MG/300 ML IVPB IV SCH ×3 (00:02→23:58)
[2019-08-01] MEDS: MAXIPIME 1 GM in NS 50 ML IV SCH ×3 (00:02→23:54)
[2019-08-01] MEDS ORDERED: CALMOSEPTINE OINTMENT TOP PRN (03:21)
[2019-08-01 06:36] LABS: HEMATOCRIT 26.5 % (37.0-47.0); HEMOGLOBIN 8.5 g/dL (12.0-16.0); MCH 28.3 PG (27-31); MCHC 32.1 g/dL (33-37); MCV 88.3 FL (81-99); WBC 9.65 X1000 (4.8-10.8)
[2019-08-01 07:11] LABS: ALBUMIN 3.2 g/dL (3.5-5.0); CREATININE 1.2 mg/dL (0.5-0.9); PHOSPHORUS 3.1 mg/dL (2.7-4.5); POTASSIUM 3.6 mmol/L (3.5-5.1)
[2019-08-01] MEDS: THERA M PLUS PO SCH (08:14)
[2019-08-01] MEDS: ASPIRIN PO SCH (08:14)
[2019-08-01] MEDS: ELIQUIS PO SCH ×2 (08:14→20:58)
[2019-08-01] MEDS: COREG PO SCH ×3 (08:14→21:02)
[2019-08-01] MEDS: MUCINEX PO SCH ×2 (08:14→20:59)
[2019-08-01] MEDS: FLONASE NAS SCH (08:15)
[2019-08-01] MEDS: CULTURELLE PO SCH ×2 (10:06→20:59)
[2019-08-01] MEDS: XOPENEX NEB INH SCH ×3 (10:50→22:50)
[2019-08-01] MEDS ORDERED: MAGNESIUM SULFATE 2 GM/S.W.I. 2 GM/50 ML IVPB IV ONE (18:08)
--- NOTE | 2019-08-01 18:28 | PROGRESS NOTE ---
DATE: 08/01/2019 SUBJECTIVE: The patient is resting comfortably in bed. She states that she feels okay today. No acute events noted overnight. OBJECTIVE: Vital Signs: Temperature 97.7 degrees, blood pressure 121/58, heart rate 66, respirations 16, O2 saturations 100% on room air. General: This is a morbidly obese female sitting in bed in no acute distress. Heart: S1, S2 normal. Regular rate and rhythm. Lungs: Equal air entry bilaterally. No wheezing, no rales. Abdomen: Positive bowel sounds. Soft, nontender, nondistended. Extremities: 2+ edema to legs bilaterally. Neuro: The patient is alert and oriented x3. LAB: White blood cell count 9.6, hemoglobin 8.5, hematocrit 26, platelets 154,000. Sodium 139, potassium 3.6, chloride 99, CO2 26, BUN 11, creatinine 1.2, glucose 95. ASSESSMENT AND PLAN: 1. Left lower lobe pneumonia. Continue with antibiotics, bronchodilator therapy and incentive spirometry. 2. Acute diastolic congestive heart failure exacerbation. Continue with the current diuretic regimen as directed by the vp product. 3. Anemia. Improved. The patient received a blood transfusion yesterday. 4. Chronic sinusitis. Continue with antibiotics and Nasonex. 5. Morbid obesity. Aware. The patient has been counseled about weight loss and proper diet. 6. Breast cancer status post chemotherapy. Aware. The patient has been followed by Dr. Brody. 7. Acute kidney injury. This is likely secondary to the diuretic therapy. Continue to monitor closely. 8. Atrial fibrillation. The patient is rate controlled. Continue on the current cardiac medications. 9. Deep vein thrombosis prophylaxis. Continue on Eliquis. 10. Will consult physical therapy. Out of bed to chair. cc: Suzanne Sawant MD [facility]
[2019-08-01] MEDS: MEVACOR PO SCH (21:00)
[2019-08-02] MEDS: ZYVOX 600 MG/D5W 600 MG/300 ML IVPB IV SCH ×2 (00:09→12:07)
--- NOTE | 2019-08-02 04:14 | PROGRESS NOTE ---
DATE: 07/30/2019 SUBJECTIVE: The patient is resting comfortably in bed. She states that she feels better today. Her legs are still swollen. OBJECTIVE: Vital Signs: Temperature 98.2 degrees, blood pressure 108/47, heart rate 94, respirations 18, O2 saturations 100% on room air. General: This is a chronically ill-appearing female, lying in bed in no acute distress. Heart: S1, S2. Normal. Lungs: Clear to auscultation bilaterally. Abdomen: Positive bowel sounds. Soft, nontender, nondistended. Extremities: 3+ edema. Neurologic: The patient is alert and oriented x3. LABS: White blood cell count 8.8, hemoglobin 7.9, hematocrit 24, platelets 148,000. Sodium 139, potassium 3, chloride 101, CO2 27, BUN 9, creatinine 1.1, glucose 97, magnesium 1.6. ASSESSMENT AND PLAN: 1. Acute diastolic congestive heart failure exacerbation. Continue with the current regimen as directed by the airline stewardess. 2. Anemia. Improved. The patient received 1 unit of packed red blood cells yesterday. 3. Breast cancer, status post chemotherapy. Aware. The patient is followed by Dr. Brody. 4. Atrial fibrillation. Continue on the current cardiac regimen. 5. Morbid obesity. The patient has been counseled about weight loss and proper diet. 6. Deep vein thrombosis prophylaxis. Continue on Eliquis. cc: Suzanne Sawant MD
--- NOTE | 2019-08-02 07:31 | Diag Imaging Result Doc PS360 ---
EXAM: CHEST-1 VIEW INDICATION: pneumonia TECHNIQUE: One view COMPARISON: 07/28/2019 FINDINGS: The right chest port is in stable position. Inspiration is suboptimal. The lungs remain grossly clear by plain radiograph. No new consolidation is identified. Cardiac silhouette is stable. IMPRESSION: Essentially stable chest. Electronically signed by Gerber Lopez 08/02/2019 7:28 AM
[2019-08-02 07:38] LABS: ALBUMIN 3.2 g/dL (3.5-5.0); CREATININE 1.3 mg/dL (0.5-0.9); MAGNESIUM 1.6 mg/dL (1.5-2.7); PHOSPHORUS 3.7 mg/dL (2.7-4.5); POTASSIUM 3.3 mmol/L (3.5-5.1)
[2019-08-02 07:42] LABS: BASO# 0.06 X1000 (0.0-0.2); BASO% 0.6 % (0.0-0.8); EOS# 0.02 X1000 (0.0-0.7); EOS% 0.2 % (0.0-10.0); HEMATOCRIT 27.6 % (37.0-47.0); HEMOGLOBIN 8.9 g/dL (12.0-16.0); IMM GRAN# 0.14 X1000 (0.0-0.04); IMM GRAN% 1.5 % (0.0-0.5); LYMPH# 1.58 X1000 (1.2-3.4); MCH 28.6 PG (27-31); MCHC 32.2 g/dL (33-37); MCV 88.7 FL (81-99); MONO# 1.03 X1000 (0.11-0.59); MONO% 11.1 % (1.7-9.3); MPV 11.8 FL (7.4-10.4); NEUT# 6.47 X1000 (1.4-6.5); NEUT% 69.6 % (42.2-75.2); PLT 165 X1000 (130-400); RBC 3.11 XMIL (4.2-5.4)
[2019-08-02 07:54] LABS: ANISOCYTOSIS 1+; BANDS 2 % (0-1); HYPOCHROM 1+; LYMPHS 20 % (21-51); MONO 14 % (1-9); SEGS 62 % (42-75)
[2019-08-02] MEDS: CULTURELLE PO SCH ×2 (08:41→21:03)
[2019-08-02] MEDS: MUCINEX PO SCH ×2 (08:41→21:02)
[2019-08-02] MEDS: THERA M PLUS PO SCH (08:41)
[2019-08-02] MEDS: ASPIRIN PO SCH (08:41)
[2019-08-02] MEDS: LASIX IV SCH (08:41)
[2019-08-02] MEDS: ELIQUIS PO SCH ×2 (08:41→21:02)
[2019-08-02] MEDS: COREG PO SCH ×2 (08:41→21:02)
[2019-08-02] MEDS: FLONASE NAS SCH (08:43)
[2019-08-02] MEDS ORDERED: MAGNESIUM SULFATE 2 GM/S.W.I. 2 GM/50 ML IVPB IV ONE (08:52)
[2019-08-02] MEDS ORDERED: KLOR-CON PO ONE (08:54)
[2019-08-02] MEDS: XOPENEX NEB INH SCH ×3 (11:33→22:26)
[2019-08-02] MEDS: MAXIPIME 1 GM in NS 50 ML IV SCH (12:07)
--- NOTE | 2019-08-02 12:43 | CARDIOLOGY PROGRESS NOTE ---
DATE: 08/02/2019 SUBJECTIVE: Ms. Hook reports she is doing well. She has no pain complaints. Her edema has improved. PHYSICAL EXAMINATION: Afebrile, heart rate is 90, blood pressure 90/48. General: She is in no acute distress. Cardiovascular: She sounds to be in an irregularly irregular rhythm. She has no murmurs. She has trace bilateral lower extremity edema. Chest Examination: Sounds clear bilaterally. She has no increased work of breathing. Abdomen is soft, nontender. PERTINENT DATA: White count 9.3, hematocrit 27.6, platelet count is 165,000. Her sodium is 137, potassium is 3.3, BUN is 11, creatinine is 1.3. ASSESSMENT: Ms. Hook is a 59-year-old female who presented with anemia as well as atrial fibrillation and diastolic failure. PLAN: We will switch her over to oral Lasix. From my standpoint, she can be discharged when safe from a primary team standpoint. I will place her on 40 b.i.d. of Lasix. She seems reasonably rate-controlled on her current dose of carvedilol. cc: Saran Vázquez MD
--- NOTE | 2019-08-02 15:43 | PROGRESS NOTE ---
DATE: 08/02/2019 SUBJECTIVE: The patient is resting comfortably. She states that she feels much better. The swelling in her legs has improved. OBJECTIVE: Vital Signs: Temperature 98.2 degrees, blood pressure 90/48, heart rate 90, respirations 16, O2 saturation is 100% on room air. General: This is a morbidly obese female sitting in bed in no acute distress. Heart: S1, S2 normal. Lungs: Equal air entry bilaterally. No wheezing. No rales. Abdomen: Positive bowel sounds. Soft, obese, nontender, nondistended. Extremities: 2+ edema bilaterally. Neurologic: The patient is alert and oriented x3. LABS: White blood cell count 9.3, hemoglobin 8.9, hematocrit 27, platelets 165,000. Sodium 137, potassium 3.3, chloride 98, CO2 26, BUN 11, creatinine 1.3, glucose 114, albumin 3.2. IMAGING: Chest x-ray shows a stable chest. ASSESSMENT AND PLAN: 1. Acute diastolic congestive heart failure exacerbation. Improved. The patient has been transitioned to oral diuretic therapy by the terrazzo polisher. Continue on the current medications. 2. Possible pneumonia. The CT showed atelectasis versus a left lower lobe infiltrate. The patient was started on antibiotic therapy on Friday and reports improvement in her respiratory symptoms. We will continue the treatment course for the pneumonia. The procalcitonin is currently pending. 3. Chronic sinusitis. Continue with antibiotics and Nasonex. 4. Morbid obesity. The patient has been counseled about weight loss and proper diet. 5. Atrial fibrillation. The patient is rate controlled. Continue on the current cardiac regimen. 6. Breast cancer, status post chemotherapy and mastectomy. Aware. Dr. Brody is following. 7. Anemia. Stable. 8. Hypokalemia. We will replace the patient's potassium. 9. Deep vein thrombosis prophylaxis. The patient is on Eliquis. 10. Disposition. The patient should be stable for discharge home in the next 24 hours. cc: Suzanne Sawant MD [facility]
--- NOTE | 2019-08-02 17:13 | HEMO/ONC PROGRESS NOTE ---
DATE: 08/02/2019 SUBJECTIVE: Ms Hook has been moved up to floor bed. She states she is feeling a lot better. She denies any shortness of breath. She is continuing to have a significant amount of edema to her legs but states it has improved. The patient denies any acute distress. She tells me that she has been told by hospitalist that she can go home if oncology feels she can go home. OBJECTIVE: Vital Signs: Temperature 98.3 degrees, pulse rate 106, respiratory rate 16, blood pressure 95/57, O2 saturation 100% on room air, she is in 0/10 pain. General: This is an obese female in no acute distress. Cardiovascular: Normal S1, S2. Heart rate and rhythm tachycardic. Respiratory: Lung sounds are clear to auscultation, normal respiratory effort. No oxygen on the patient. Abdomen: Protuberant, soft, nontender, nondistended. Bowel sounds are positive. Extremities: 3+ pitting edema bilaterally. Neurological: Alert and oriented x3. LABORATORY: WBC 9.30, hemoglobin 8.9, hematocrit 27.6, platelet count 165,000. Potassium 3.3, creatinine 1.3, albumin 3.2. ASSESSMENT AND PLAN: 1. Diastolic heart failure. Per Cardiology. 2. Atrial fibrillation with rapid ventricular response, patient is rate controlled. Continue management per Cardiology. Patient is off cardiac floor at this time. 3. Anemia. Patient has had 2 blood transfusions which has improved her hemoglobin at this time. She will continue to need transfusions for hemoglobin less than 8. We will evaluate her iron in the clinic. 4. Left-sided breast cancer. The patient is currently receiving treatment for cancer, is currently on hold while she is recovering from this acute illness. 5. Hypokalemia. Continue replacement per medical management protocol. 6. Deep venous thrombosis prophylaxis. The patient is on Eliquis. She should also be getting out of bed at least 3 times a day. 7. Nutrition. Continue the patient with protein shakes. DISPOSITION: From our standpoint the patient is okay for discharge. As long as she is cleared from Cardiology we are comfortable with her discharge. Dictated by TOOTIE Hurtado for Armando Brody MD cc: Armando Brody MD [facility]
[2019-08-02] MEDS: LASIX PO SCH (21:02)
[2019-08-02] MEDS: MEVACOR PO SCH (21:02)
[2019-08-03] MEDS: ZYVOX 600 MG/D5W 600 MG/300 ML IVPB IV SCH ×2 (00:03→12:07)
[2019-08-03] MEDS: MAXIPIME 1 GM in NS 50 ML IV SCH ×3 (00:03→17:14)
[2019-08-03 09:44] LABS: BASO# 0.03 X1000 (0.0-0.2); BASO% 0.5 % (0.0-0.8); EOS# 0.02 X1000 (0.0-0.7); EOS% 0.3 % (0.0-10.0); HEMATOCRIT 29.5 % (37.0-47.0); HEMOGLOBIN 9.5 g/dL (12.0-16.0); IMM GRAN# 0.04 X1000 (0.0-0.04); IMM GRAN% 0.6 % (0.0-0.5); LYMPH# 1.48 X1000 (1.2-3.4); LYMPH% 22.2 % (20.5-51.1); MCH 28.5 PG (27-31); MCHC 32.2 g/dL (33-37); MCV 88.6 FL (81-99); MONO# 0.56 X1000 (0.11-0.59); MONO% 8.4 % (1.7-9.3); NEUT# 4.53 X1000 (1.4-6.5); PLT 182 X1000 (130-400); RBC 3.33 XMIL (4.2-5.4); RDW 19.1 % (11.5-14.5); WBC 6.66 X1000 (4.8-10.8)
[2019-08-03] MEDS: CULTURELLE PO SCH (09:59)
[2019-08-03] MEDS: ASPIRIN PO SCH (09:59)
[2019-08-03] MEDS: MUCINEX PO SCH (09:59)
[2019-08-03] MEDS: COREG PO SCH (09:59)
[2019-08-03] MEDS: LASIX PO SCH (09:59)
[2019-08-03] MEDS: ELIQUIS PO SCH (09:59)
[2019-08-03] MEDS: THERA M PLUS PO SCH (09:59)
[2019-08-03] MEDS: FLONASE NAS SCH (10:00)
[2019-08-03 10:54] LABS: ALBUMIN 3.2 g/dL (3.5-5.0); CALCIUM 9.3 mg/dL (8.8-10.2); CREATININE 1.2 mg/dL (0.5-0.9); PHOSPHORUS 3.6 mg/dL (2.7-4.5); POTASSIUM 3.4 mmol/L (3.5-5.1)
[2019-08-03] MEDS: XOPENEX NEB INH SCH ×2 (11:54→15:34)
[2019-08-03 16:19] VITALS: BP 99/60
[2019-08-03] MEDS ORDERED: KLOR-CON PO ONE (17:23)
--- NOTE | 2019-08-03 22:37 | DISCHARGE SUMMARY ---
ADMISSION DATE: 07/28/2019 DISCHARGE DATE: 08/03/2019 DISCHARGE DISPOSITION: Home. DISCHARGE CONDITION: Hemodynamically stable. Her heart rate is well controlled. She has been tolerating oral Lasix. She was advised to have follow up with her regular doctor to get a repeat kidney function and electrolytes done. She was also advised to have follow up with metal control coordinator and her oncologist. She was provided prescription of oral Lasix as well as a short prescription of antibiotics. DISCHARGE DIAGNOSES: 1. Acute diastolic congestive heart failure exacerbation. 2. Left lower lobe pneumonia. 3. Morbid obesity. 4. Atrial fibrillation with rapid ventricular response. 5. Hypokalemia. OTHER DIAGNOSES: 1. Chronic sinusitis. 2. Morbid obesity. 3. Left-sided breast cancer, on active chemotherapy. 4. Essential hypertension. 5. History of paroxysmal atrial fibrillation. 6. Hyperlipidemia. DISCHARGE MEDICATIONS: 1. Lovastatin 20 mg at nighttime. 2. Reglan 10 mg every 6 hours as needed for nausea and vomiting. 3. Vitamin B complex 1 tablet daily. 4. Eliquis 5 mg b.i.d. 5. Potassium chloride 40 mEq daily. 6. Multivitamins 1 tablet daily. 7. Vitamin D2 58198 units every 7 days. 8. Zinc sulfate 220 mg b.i.d. 9. Carvedilol 12.5 mg b.i.d. 10. Furosemide 40 mg b.i.d. 60 tablets have been prescribed. 11. Levofloxacin 500 mg daily, 3 tablets have been prescribed. VITALS: At the time of discharge temperature 98.2 degrees, pulse 79, respiratory rate 19, blood pressure 99/60. She is saturating 100% on room air. PHYSICAL EXAMINATION: Morbidly obese, not in any acute distress. Oral cavity was moist. Lungs: Air entry bilaterally equal. No wheeze, rhonchi, or crackles. Cardiovascular: S1, S2 normal. No murmur or gallop. She has a right-sided chest port. Abdomen: Obese, soft, nontender. Bilateral lower extremity edema. She is alert and oriented x3. LABS: At time of discharge, WBC 9.6, hemoglobin 8.5, platelet 154,000. Potassium of 3.4, BUN 11, creatinine 1.2. Microbiology, sputum culture and blood culture did not have any growth. Urine culture had mixed jace. SIGNIFICANT IMAGING DURING HOSPITAL ADMISSION: 1. Extremity venous study of lower extremity did not have any evidence of DVT. 2. Chest x-ray on presentation did not have any acute disease. 3. Chest CT on July 30 had atelectasis and/or pneumonia of left lower lobe. 4. Chest x-ray on August 01 had essentially stable chest. 5. Electrocardiogram on presentation had atrial fibrillation with rapid ventricular response. 6. Echocardiogram on July 28 had decreased ejection fraction to 50 to 55%, though the study was limited. The patient also had pulmonary hypertension with pulmonary artery systolic pressure of 39 mmHg without any pericardial effusion, mass, or thrombus. Right-sided chambers were [id number] enlarged. HOSPITAL COURSE SUMMARY: 1. Ms. Hook is a 59-year-old lady with past medical history of left breast cancer who is undergoing chemotherapy, had complained off waxing and waning bilateral lower extremity edema associated with some shortness of breath without chest pain or palpitation. She did not have any fevers or chills. She did have some nausea, vomiting, and loose stools associated with chemotherapy. She came in with chief complaints of bilateral lower extremity edema as well as shortness of breath. In the emergency room, she was found to have atrial fibrillation with rapid ventricular response, elevated proBNP of 2700 and bilateral lower extremity edema. She was admitted for further management and Cardiology was consulted. 2. The patient's atrial fibrillation was well controlled on her oral medications of apixaban as well as carvedilol. She was initially on intravenous Lasix which was later on changed to oral Lasix, which she was tolerating well. Chest CT performed also had left-sided patch of pneumonia, so she was started on antibiotics. So far, she has completed almost 4 days of antibiotics. At the time of discharge, her antibiotics were changed to oral, and she was discharged on oral medication regimen including Lasix. 3. She was advised to have follow up with metal control coordinator, regular physician, as well as oncologist. The nursing team was requested to provide her new regular physician's contact information. 4. 25 minutes were spent in discharging this patient. Plan of care was extensively discussed with Ms. Hook. All of her questions were satisfactorily answered. cc: Joshua Varela MD
== END 2019-08-03 19:15 | disposition home or self-care (01) | DRG 291 ==
LOC: ED 10:20 → SUATTDRO 14:49 → 2N 14:49 → 3N 08-01 13:00
PROVIDERS: ATTEND Internal Medicine